=== PATIENT | female | born 1975 | race Caucasian/White ===

== ENCOUNTER 2022-02-23 12:11 | Emergency (ER) | payer SELFPAY ==
[2022-02-23 12:21] VITALS: BP 141/90; PULSE 78; RESP 16; TEMP 36.8; O2SAT 99
--- NOTE | 2022-02-23 12:53 | W.ED.GENAD ---
Discharge Plan Disposition Patient Disposition: HOME Condition: Stable Discharge Details Clinical Impression: COVID Primary Care Provider: Feliciano Reis ED Provider: Rio Ayoub Home Meds and New Rx's Prescriptions: No Action No Known Home Meds Discharge Instructions Instructions: COVID-19 (Coronavirus Disease 2019) (ED) Additional Instructions: You are eligible for Paxlovid, please take as directed. Plenty of fluids to avoid dehydration. Rest. [id number]-[id number]-[id number] medication as directed for symptomatic control. Watch for new or worsening symptoms and return to the ER for any concerns. Lastly, please contact your primary care provider tomorrow to discuss your ER visit need for outpatient reevaluation likely through telemedicine. You should quarantine for the next 5 days. Medical Decision Making 46-year-old female with no significant past medical history presenting to the ER with URI-like symptoms over the past couple of days, testing positive for COVID, requesting oral agents. She does meet eligibility for treatment of Paxlovid. Clinically she appears well, nontoxic. We discussed obtaining screening laboratory values including a CMP prior to administration of Paxlovid but patient declines, feels as though this is unnecessary. She has no history of renal disease. We will provide medication and subsequently discharged. Lungs are clear to auscultation, she is afebrile, O2 sat is 99% on room air, no clear indication to obtain chest x-ray. Standard discharge and return precautions were provided. Patient understands, is agreeable to this plan, and has no additional questions or concerns upon discharge. This documentation was generated using [employer] dictation system, please disregard any oddities of phrase or misspellings. Medical Records Medical records reviewed: Yes I reviewed the patient's medical records. HPI General Mode of arrival: ambulatory. Date/Time Provider Initiated Documentation: 02/23/22 12:13. Limitations to Documentation: no limitations. Information obtained by: patient. HPI Narrative: This is a 46-year-old female, denies significant past medical history, has been vaccinated for COVID as well as having her booster, presenting with 2-day history of URI-like symptoms, tested positive at home for COVID, requesting oral COVID medications. She reports fatigue, productive cough, body aches, simply not feeling well. She denies any fever, chest pain, shortness of breath, abdominal pain, nausea, vomiting, skin rash, change in bowel or bladder function. She has not taken any phoh-ibr-zavrpin medications for her symptoms. Related Data Home Medications Medication Instructions Recorded Confirmed Unknown [No Known Home Meds] 04/08/15 02/23/22 Allergies Allergy/AdvReac Type Severity Reaction Status Date / Time shellfish derived Allergy Severe Anaphylaxis Unverified 02/23/22 12:30 General Stated Complaint: RespSymp FREDERIC: 3 Review of Systems Constitutional Constitutional: Denies fever(s) and Reports headache(s) ENT Ears, Nose, Mouth, and Throat: Reports headache(s), Denies neck pain and Reports sore throat Cardiovascular Cardiovascular: Denies chest pain and Denies dyspnea Respiratory Respiratory: Reports cough and Denies dyspnea Gastrointestinal Gastrointestinal: Denies abdominal pain, Denies nausea and Denies vomiting Genitourinary Genitourinary: Denies dysuria Musculoskeletal Musculoskeletal: Reports myalgias and Denies neck pain Integumentary/Breasts Skin/Breast: Denies rash Neurologic Neurologic: Reports headache(s) PFSH All Active Problems COVID (Acute) Social History Smoking/Tobacco Use Status: Former Tobacco Use Smoking risk assessment performed?: Yes Alcohol Intake: current Alcohol Intake frequency: holidays/special occasions only Drug use: Never Do you feel safe at home: Yes Do you feel safe in your relationship?: Yes Exam Const General: cooperative, healthy appearing, comfortable and no acute distress Orientation: alert and awake [facility] Head: normal to inspection, normocephalic and atraumatic Ears: external ears normal and EAC's normal General nose exam: nasal discharge clear Mouth: moist mucous membranes Throat: posterior oropharynx normal Eyes General: appearance normal, both eyes and all related structures Conjunctivae: conjunctivae normal Neck Neck: normal visual inspection, full ROM, no meningeal signs, trachea midline and supple Resp Effort & Inspection: normal respiratory effort, able to speak in complete sentences and cough Auscultation: clear to auscultation bilaterally Cardio Rate: regular rate Rhythm: regular rhythm Skin General skin exam: no rashes or lesions noted Neuro General: patient alert, patient awake, moves all extremities and no focal motor deficits Sensory Exam: no sensory deficits noted Psych Appearance: grossly normal Mental Status: mental status grossly normal Course Vital Signs Vital signs: Vital Signs Temperature 36.8 C 02/23/22 12:21 Pulse 78 02/23/22 12:21 Respiratory Rate 16 02/23/22 12:21 Blood Pressure 141/90 H 02/23/22 12:21 Pulse Oximetry 99 02/23/22 12:21 Temperature 36.8 C 02/23/22 12:21 Temperature Source Skin 02/23/22 12:21 Pulse 78 02/23/22 12:21 Respiratory Rate 16 02/23/22 12:21 Respiratory Effort 02/23/22 12:29 Respiratory Depth Normal 02/23/22 12:29 Blood Pressure 141/90 H 02/23/22 12:21 Blood Pressure Position Sitting 02/23/22 12:21 Pulse Oximetry 99 02/23/22 12:21 Oxygen Delivery Method Room Air 02/23/22 12:21 Oxygen Flow Rate 0 02/23/22 12:21 Pain Level 6 02/23/22 12:21 Comment 02/23/22 12:21
== END 2022-02-23 13:03 | disposition home or self-care (01) ==
PROVIDERS: Emergency Provider Physician Assistant; PCP Family Medicine
DX: U07.1 COVID-19 (principal); Z87.891 Personal history of nicotine dependence
CPT/HCPCS: 99283; 99284

== ENCOUNTER 2024-02-25 17:40 | Emergency (ER) | payer SELFPAY ==
[2024-02-25 17:41] VITALS: BP 141/90; PULSE 64; RESP 14; TEMP 36.7; O2SAT 97
--- NOTE | 2024-02-25 17:45 | DI.RAD_ITS ---
Exam(s) XR ELBOW RT COMPLETE EXAM: XR ELBOW RT COMPLETE CLINICAL HISTORY: pain post fall. TECHNIQUE: 2D digital imaging was performed of the left elbow. Four images were obtained. AP, late ral and oblique views were obtained. COMPARISON: No exams were available for comparison FINDINGS: BONES: No acute fracture is present. No bony destructive lesion is seen. JOINTS: The elbow is normally aligned. No joint effusion is seen. SOFT TISSUE: There is a tiny well corticated osseous density adjacent to the medial epicondyle which appears old. IMPRESSION: No acute fracture or dislocation. No joint effusion. DATA REPOSITORY: RADIATION DOSE DELIVERED:
--- NOTE | 2024-02-25 18:33 | ED.GENADUL_ITS ---
Discharge Plan Disposition Patient Disposition: Home Discharge Details Clinical Impression: Contusion of elbow, right Primary Care Provider: None,None ED Provider: Estephania Lei Home Meds and New Rx's Prescriptions: No Action No Known Home Meds Discharge Instructions Instructions: Elbow Sprain (DC) Additional Instructions: take tylenol and ibuprofen as needed for pain repeat evaluation in one week if persistent pain continue to range shoulder and elbow use as tolerated return earlier wtih new or worsening complaints Stand Alone Forms: Work Release HPI General Date/Time Provider Initiated Documentation: 02/25/24 17:48 . HPI Narrative: This 48-year-old female presents with report of trip and fall, landing on right elbow. Denies any additional injuries. Pain with flexion extension of the elbow. Denies chance of Related Data Home Medications ?Medication ?Instructions ?Recorded ?Confirmed Unknown [No Known Home Meds] 04/08/15 02/25/24 Allergies Allergy/AdvReac Type Severity Reaction Status Date / Time shellfish derived Allergy Severe Anaphylaxis Unverified 02/25/24 17:45 General Stated Complaint: Orthopedic FREDERIC: 3 Exam Narrative Exam Narrative: Right elbow with tenderness, no visible sign of trauma, no tenderness to right shoulder, no tenderness right wrist, alert and oriented in no acute distress and is a visible sign of head injury, neurovascularly intact Course Vital Signs Vital signs: Vital Signs Temperature 36.7 C 02/25/24 17:41 Pulse 64 02/25/24 17:41 Respiratory Rate 14 02/25/24 17:41 Blood Pressure 141/90 H 02/25/24 17:41 Pulse Oximetry 97 02/25/24 17:41 Temperature 36.7 C 02/25/24 17:41 Temperature Source Oral 02/25/24 17:41 Pulse 64 02/25/24 17:41 Respiratory Rate 14 02/25/24 17:41 Respiratory Effort Normal 02/25/24 17:46 Blood Pressure 141/90 H 02/25/24 17:41 Pulse Oximetry 97 02/25/24 17:41 Oxygen Delivery Method Room Air 02/25/24 17:41 Oxygen Flow Rate 0 02/25/24 17:41 Pain Level 6 02/25/24 17:41 Comment 03/24 with movement 02/25/24 17:41 Medical Decision Making 48-year-old female presenting with right elbow injury, no visible evidence of trauma. Neurovascularly intact, x-ray per radiology interpretation my review does not show evidence of acute abnormality, given sling, frozen shoulder return precautions reviewed. Repeat imaging in 1 week with persistent symptoms recommended. Return precautions reviewed and patient expressed understanding Quality:SDOH Health Related Social Needs: No Data to Display PFSH All Active Problems (Updated 02/25/24 @ 18:44 by BRANDON Garza) Contusion of elbow, right (Acute) COVID (Acute) Social History Smoking/Tobacco Use Status: Former Tobacco Use Smoking risk assessment performed?: Yes Alcohol Intake: current Alcohol Intake frequency: holidays/special occasions only Drug use: Never Housing: house Do you feel safe at home: Yes Do you feel safe in your relationship?: Yes
== END 2024-02-25 18:51 | disposition home or self-care (01) ==
PROVIDERS: Emergency Provider Physician Assistant
DX: S50.01XA Contusion of right elbow, initial encounter (principal); Y93.01 Activity, walking, marching and hiking; Y92.414 Local residential or business street as the place of occurrence of the external cause; Z87.891 Personal history of nicotine dependence
CPT/HCPCS: 99283; 73080; 99284